=== PATIENT | male | born 1970 | race Two or more races ===

== ENCOUNTER 2021-01-11 05:15 | Day surgery (SDC) | payer OTHER ==
[2021-01-11] MEDS ORDERED: AMOXICILLIN500 MG PO (09:51)
[2021-01-11] MEDS ORDERED: CILOXAN5 ML OTIC (09:51)
[2021-01-11] MEDS ORDERED: ZOFRAN8 MG PO (09:51)
== END 2021-01-11 11:45 | disposition home or self-care (01) ==
LOC: CIR.AMB 05:15
PROVIDERS: ATTEND Otolaryngology Otology & Neurotology
DX: H80.11 Otosclerosis involving oval window, obliterative, right ear (principal); H90.A11 Conductive hearing loss, unilateral, right ear with restricted hearing on the contralateral side; Z20.822 Contact with and (suspected) exposure to COVID-19